=== PATIENT | female | born 1985 | race Caucasian/White ===

== ENCOUNTER → 2021-09-15 | Outpatient (CLI) | payer OTHER | LOC: M.WC 10:21 | PROVIDERS: ATTEND Surgery | DX: R21 Rash and other nonspecific skin eruption (principal); L73.2 Hidradenitis suppurativa; F17.200 Nicotine dependence, unspecified, uncomplicated; F41.9 Anxiety disorder, unspecified; Z79.899 Other long term (current) drug therapy ==

== ENCOUNTER → 2021-09-22 | Outpatient (CLI) | payer OTHER | LOC: M.WC 07:48 | PROVIDERS: ATTEND Surgery | DX: L73.2 Hidradenitis suppurativa (principal); R21 Rash and other nonspecific skin eruption; L98.8 Other specified disorders of the skin and subcutaneous tissue; F41.9 Anxiety disorder, unspecified; F17.290 Nicotine dependence, other tobacco product, uncomplicated; Z79.899 Other long term (current) drug therapy ==

== ENCOUNTER → 2021-09-29 | Outpatient (CLI) | payer OTHER | LOC: M.WC 07:47 | PROVIDERS: ATTEND Surgery | DX: L73.2 Hidradenitis suppurativa (principal); R21 Rash and other nonspecific skin eruption; L98.8 Other specified disorders of the skin and subcutaneous tissue; F41.9 Anxiety disorder, unspecified; F17.290 Nicotine dependence, other tobacco product, uncomplicated; Z79.899 Other long term (current) drug therapy ==